=== PATIENT | male | born 1955 | race Caucasian/White ===

== ENCOUNTER → 2017-03-17 | Outpatient (CLI) | payer SELFPAY ==
[~2017-03-17] MED LIST: JANU50TA5 PO
--- NOTE | 2017-03-18 10:14 | RADRPT ---
EXAM DATE/TIME: 03/17/2017 15:29 CONSULTATION: Patient is kindly referred for evaluation of possible biopsy and thermal ablation of growing hepatic lesions in segments 7 and 4. Patient has a history of EtOH cirrhosis. Surveillance ultrasound imaging on June 2016 demonstrate d an enlarged caudate lobe concerning for mass at that time. This led to MRI examination in July 2016 which demonstrated 3 separate moderately suspicious small regions of enhancement in segments 7 a nd 4. Followup imaging in February of this year demonstrated very subtle interval enlargement of lesions in segments 7 and one of the lesions in segment 4. These lesions demonstrate early arterial enhancem ent with washout, therefore likely LI-RADS 5. Largest measures 2.3 cm near the dome in segment 7 with the segment 4 mass measuring 1.9 cm. Patient has normal AFP levels and normal hepatic function based on provided laboratory data from 01/14/2017. These lesions are very difficult to visualize on nonenhanced MRI images and suspect will be the same on CT exam. Additionally, both masses are small in size. Extremely cephalad location of the segment 7 mass in the posterior dome region precludes biopsy. The segment 4 mass may be amenable to biopsy if visualized with ultrasound and depending on appearance on CT. If ablation is planned, both lesions wi ll require marking with radiopaque beads or Ethiodol to allow for targeting. Will schedule patient for formal consultation. Ryan Ryan MD on March 18, 2017 at 9:25 Board Certified Radiologist. This report was verified electronically.
== END ==
LOC: HRAD 15:24
PROVIDERS: ATTEND Internal Medicine Gastroenterology
DX: K76.89 Other specified diseases of liver (principal)

== ENCOUNTER 2017-04-06 14:24 | Day surgery (SDC) | payer MEDICARE ==
[2017-04-06 14:35] VITALS: BP 133/63; PULSE 93; RESP 20; TEMP 97.4; O2SAT 98
[2017-04-06] MEDS ORDERED: METO50TA11 PO (16:14)
[2017-04-06] MEDS ORDERED: ALLO300T2 PO (16:14)
[2017-04-06] MEDS ORDERED: ATOR20TA15 PO (16:14)
[2017-04-06] MEDS ORDERED: LOSA50TA2 PO (16:14)
[2017-04-06] MEDS ORDERED: NEUR300C PO (16:14)
[2017-04-06] MEDS ORDERED: METF850T PO (16:14)
[2017-04-06] MEDS ORDERED: ISOS30TA15 (16:14)
[2017-04-06] MEDS ORDERED: ASPI325T PO (16:14)
[2017-04-06] MEDS ORDERED: OMEP10CA PO (16:14)
[2017-04-06] MEDS ORDERED: NITR1SUB3 SL (16:14)
[2017-04-06] MEDS ORDERED: AMLO5TAB2 PO (16:14)
[2017-04-06] MEDS ORDERED: LANTINJ SQ (16:14)
--- NOTE | 2017-04-07 11:21 | RADRPT ---
EXAM DATE/TIME: 04/06/2017 14:30 [facility] COMPARISON : INDICATIONS : Consult for hepatocellular carcinoma OBJECTIVE: Temperature: 97.4 Heart Rate: 93 Blood Pressure: 133/63 Respiratory: 18 Oximetry: 98 PNEUMONIA VACCINE: NO HISTORY OF PRESENT ILLNESS: Mr. Whittington is a very pleasant 61-year-old white male with a history of alcoholic cirrhosis with tiny r eferred for evaluation of possible biopsy and ablation of liver masses. Patient has no complaints and denies fevers, chills, abdominal pain, unintentional weight loss. Surveillance MRI imaging in [facility] of last year demonstrated 3 suspicious areas of enhancement with subsequent MRI in February demonstrat ing 2 of these lesions have increased in size. These include a 2.3 cm lesion in segment 7 near the do me and a 1.9 cm lesion in segment 8. The third lesion in segment 4 appears to be stable. PAST MEDICAL HISTORY : 1. Hypercholesterolemia. 2. Cardiovascular disease. 3. Diabetes mellitus 2. 4. Carcinoma, hepatocellular. PAST SURGICAL HISTORY : 1. CABG 2. right groin hernia repair 3. cataract SOCIAL HISTORY : ALLERGIES: 1. Penicillin 2. Iodinated contrast MEDICATIONS: 1. allopurinol 300 mg q.d. 2. Neurontin (Gabapentin) 600 mg q.d. 3. Lopressor (Metoprolol) 50 mg q.d. 4. Fomwace760 mg q.d. 5. Glumetza (Metformin)850 mg t.i.d. 6. amlopine besylate 5 mg q.d. 7. Prilosec (Omeprazole)5 mg q.d. 8. losartin 50/12.5 hctz mg q.d. 9. lantus units q.d. 10. atorvastatin 20 mg q.d. PHYSICAL EXAMINATION: General: No acute distress Abdomen: Soft nontender nondistended. IMAGING STUDIES: MRI examination dated 03/09/2017 and 07/23/2016 are reviewed. These demonstrate slight appearing liver with 2 enlarging enhancing nodules measuring 2.3 cm in segment 7 near the dome and 1.9 cm in segment 8 of the liver. Both nodules demonstrate peripheral enhancement with early washout. These are consist ent with LI-RADS 4. No evidence of portal vein invasion. Spleen is enlarged consistent with some deg ree of portal hypertension. ASSESSMENT: 61-year-old male with history of alcoholic cirrhosis and new enlarging LI-RADS 4 nodules in segments 7 and 8 of the liver. The segment 7 mass is abutting the diaphragm in the extreme dome of the liver a nd not a candidate for biopsy. The segment 8 mass is best visualized during the opacified phase on MR scan and therefore likely Ste[facility] with noncontrast CT. This makes biopsy of this mass extremely chal lenging but biopsy is feasible. Therefore, recommend biopsy of the segment 8 mass to confirm diagnosi s. Long discussion regarding potential treatment options including transplantation and liver resectio n although suspect liver resection would be challenging due to portal hypertension. Thermal ablation is a reasonable second option although obtaining margins in the segment 7 mass would be challenging d ue to position in the extreme dome of the liver. Thermal ablation would likely require concomitant ta gging chemoembolization for better targeting. PLAN: The plan for biopsy of mass in segment 8 of the liver. TIME SPENT: 20 minutes. Ryan Ryan MD on April 07, 2017 at 10:56 Board Certified Radiologist. This report was verified electronically.
== END 2017-04-06 15:50 | disposition home or self-care (01) ==
LOC: HROP 14:24 → HRIP 14:27 → HROP 15:50
PROVIDERS: ATTEND Internal Medicine Gastroenterology
DX: C22.0 Liver cell carcinoma (principal); R16.0 Hepatomegaly, not elsewhere classified; R93.5 Abnormal findings on diagnostic imaging of other abdominal regions, including retroperitoneum; K70.30 Alcoholic cirrhosis of liver without ascites; I25.10 Atherosclerotic heart disease of native coronary artery without angina pectoris; E11.9 Type 2 diabetes mellitus without complications; Z95.1 Presence of aortocoronary bypass graft; Z79.84 Long term (current) use of oral hypoglycemic drugs; Z79.4 Long term (current) use of insulin; Z79.899 Other long term (current) drug therapy
CPT/HCPCS: 99211; 99213; G0463

== ENCOUNTER 2017-05-11 07:40 | Day surgery (SDC) | payer MEDICARE ==
[~2017-05-11] VITALS: Ht 175.3 cm; Wt 85.5 kg
[2017-05-11] VITALS (7 sets, daily range): BP systolic 117–153; BP diastolic 63–86; PULSE 84–90; RESP 17–20; TEMP 97.7–98.1; O2SAT 90–96
[~2017-05-11 07:40] MED LIST changes: +ALLO300T2 PO; +AMLO5TAB2 PO; +ASPI325T PO; +ATOR20TA15 PO; +ISOS30TA15; -JANU50TA5 PO; +LANTINJ SQ; +LOSA50TA2 PO; +METF850T PO; +METO50TA11 PO; +NEUR300C PO; +NITR1SUB3 SL; +OMEP10CA PO
[2017-05-11] MEDS ORDERED: SODIUM CHLOR 0.9% 1000 ML INJ 1,000 ML IV SCH (08:15)
[2017-05-11] MEDS ORDERED: LIDOCAINE HCL 1% 20 ML VIAL ONE (08:42)
[2017-05-11 09:00] LABS: AUTOMATED NEUTROPHIL # 3.4 TH/MM3 (1.8-7.7); BASOPHIL % 0.8 % (0.0-2.0); EOSINOPHIL # 0.2 TH/MM3 (0-0.4); EOSINOPHIL % 2.7 % (0.0-4.0); HEMATOCRIT 37.2 % (39.0-51.0); HEMO FLAGS DIFF FINAL; LYMPH % 25.2 % (9.0-44.0); LYMPHOCYTE # 1.4 TH/MM3 (1.0-4.8); MEAN CELL VOLUME 80.7 FL (80.0-100.0); MEAN CORPUSCULAR HEMOGLOBIN 26.6 PG (27.0-34.0); MONO % 9.2 % (0.0-8.0); NEUT % 62.1 % (16.0-70.0); PLATELET COUNT 111 TH/MM3 (150-450); RED BLOOD COUNT 4.61 MIL/MM3 (4.50-5.90); RED CELL DISTRIBUTION WIDTH 17.8 % (11.6-17.2); WHITE BLOOD COUNT 5.5 TH/MM3 (4.0-11.0)
[2017-05-11 09:14] LABS: APTT (PATIENT) 26.4 SEC (24.3-30.1); INTERNATIONAL NORMALIZED RATIO 1.1 RATIO; PROTHROMBIN TIME - PATIENT 12.5 SEC (9.8-11.6)
[2017-05-11] MEDS ORDERED: MIDAZOLAM HCL 2 MG/2 ML VIAL ONE ×2 (09:44→10:21)
--- NOTE | 2017-05-11 11:47 | RADRPT ---
EXAM DATE/TIME: 05/11/2017 10:12 [facility] COMPARISON: No previous studies available for comparison. INDICATIONS : Liver mass. MEDICAL HISTORY : Hypercholesterolemia. Hypertension. Gastroesophageal reflux disease. Diabetes. SURGICAL HISTORY : CABG. Eye surgery. Hernia repair. Back surgery. ENCOUNTER: Subsequent ACUITY: 1 day PAIN SCORE: Nonresponsive. LOCATION: Right upper quadrant AREA EVALUATED: Liver FINDINGS: The patient presented for biopsy of a 1.8 cm mass in segment 8 of the right lobe of the liver. This l esion was not visible by CT imaging. While the patient was on the CT table the liver was scanned with ultrasound in attempt to localize a site for biopsy. There was visualization of an area in the centr al aspect of the right lobe of the liver measuring approximately 1.5 X1 0.7 cm hardware this was not reproducible enough to allow attempt at biopsy. CONCLUSION: 1. Small hyperechoic lesion in the right lobe of the liver. This lesion was not reliably enough repro duce to allow biopsy. No biopsy was performed. Ahmet Boles MD on May 11, 2017 at 11:43 Board Certified Radiologist. This report was verified electronically.
--- NOTE | 2017-05-11 11:50 | RADRPT ---
EXAM DATE/TIME: 05/11/2017 09:48 [facility] COMPARISON: The patient's outside MRI scan was evaluated. INDICATIONS : <<Liver masses> TECHNIQUE: Using automated exposure control and adjustment of the mA and/or kV according to patient size, radiat ion dose was kept as low as reasonably achievable to obtain optimal diagnostic quality images. DICO M format image data is available electronically for review and comparison. FINDINGS: Clinical history: The patient is a 61-year-old with multiple lesions identified within the liver by MRI imaging. The mo st concerning lesion was identified within segment 8. The patient presents for attempt at CT-guided b iopsy of this lesion. Noncontrast imaging through the liver was performed. The lesion in segment 8 is not visible on noncon trast CT imaging. Ultrasound was performed while the patient was in the scanner. Lesion was not adequ ately visualized by ultrasound to attempt biopsy either. The patient has a known iodine allergy. No c ontrast could be administered. As such, no biopsy was performed. Plan: The patient was returned to the holding area. No procedure was performed. The risks, benefits and pot ential complications of lipiodol administration for localization of the lesion were discussed with th e patient. The patient will be scheduled for hepatic angiography with placement of lipiodol and repea t attempt at biopsy once this as localize the lesion. CONCLUSION: 1. No biopsy performed. The lesion is not visible by noncontrast CT imaging. It is not adequately vis ualized on ultrasound. 2. We will work on scheduling the patient have lipiodol administration for localization of the lesion to perform biopsy. Ahmet Boles MD on May 11, 2017 at 11:45 Board Certified Radiologist. This report was verified electronically.
--- NOTE | 2017-05-11 13:11 | PD.RAD ---
Post Procedure Progress Note Pre Procedure Diagnosis: (1) Liver mass, right lobe Post Procedure Diagnosis: (1) Liver mass, right lobe Procedure Date: May 11, 2017 Supervising Radiologist: Ahmet Boles Plan of Activity Patient to Unit: [facility] Patient Condition: Good Additional Comments: PT. Evaluated with CT and ultrasound. The liver mass could not be adequately visualized for biopsy. No procedure preformed. Full dictated report to follow See PACS Report for procedural detail/treatment Ahmet Boles MD May 11, 2017 13:11
== END 2017-05-11 13:25 | disposition home or self-care (01) ==
LOC: HRAD 07:40 → HRIP 07:41 → HRAD 13:25
PROVIDERS: ATTEND Internal Medicine Gastroenterology
DX: R16.0 Hepatomegaly, not elsewhere classified (principal); E78.00 Pure hypercholesterolemia, unspecified; I10 Essential (primary) hypertension; K21.9 Gastro-esophageal reflux disease without esophagitis; E11.9 Type 2 diabetes mellitus without complications; Z91.041 Radiographic dye allergy status; Z79.4 Long term (current) use of insulin
CPT/HCPCS: 76705; 85025; 85610; 85730; G0463; J2250; J3010; 99211

== ENCOUNTER 2017-05-18 06:47 | Day surgery (SDC) | payer MEDICARE ==
[~2017-05-18] VITALS: Ht 175.3 cm; Wt 83.6 kg
[2017-05-18] VITALS (10 sets, daily range): BP systolic 103–144; BP diastolic 58–84; PULSE 84–107; RESP 16–20; TEMP 97.5–98.4; O2SAT 92–100
[2017-05-18] MEDS ORDERED: IOHEXOL 350 MG/ML 100 ML BTL (for RAD DIAG) OTHER ONE (06:48)
[2017-05-18] MEDS: SODIUM CHLOR 0.9% 1000 ML INJ 1,000 ML IV SCH ×2 (07:21→10:15)
[2017-05-18 07:43] LABS: BICARBONATE 24.6 MEQ/L (21.0-32.0); POTASSIUM 4.5 MEQ/L (3.5-5.1)
[2017-05-18] MEDS ORDERED: MIDAZOLAM HCL 5 MG/5 ML VIAL ONE (09:20)
[2017-05-18] MEDS ORDERED: VERAPAMIL HCL 5 MG/2 ML VIAL ONE (09:32)
[2017-05-18] MEDS ORDERED: ETHIODIZED OIL (48% IODINE) 4800 MG/10 ML AMP ONE (09:33)
[2017-05-18] MEDS ORDERED: NITROGLYCERIN 2% OINT 1 GM PACKET ONE (10:49)
[2017-05-18] MEDS ORDERED: SODIUM CHLOR 0.9% 1000 ML INJ 1,000 ML IV SCH (11:37)
--- NOTE | 2017-05-18 11:39 | PD.RAD ---
Post Procedure Progress Note Pre Procedure Diagnosis: (1) Liver mass, right lobe Post Procedure Diagnosis: (1) Liver mass, right lobe Procedure Date: May 18, 2017 Supervising Radiologist: Ryan Ryan Proceduralist/Assist: Andrey Reynolds, RT(R), Jack Elizondo RT(R) Anesthesia: Conscious Sedation Plan of Activity Patient to Unit: [facility] Patient Condition: Good Additional Comments: No abnormal enhancement on angiography. Lipiodol embolization of RHA for targeting. See PACS Report for procedural detail/treatment Ryan Ryan MD May 18, 2017 11:39
[2017-05-18] MEDS ORDERED: oxyCODONE/ACETAMINOPHEN 5 MG/325 MG TAB PO PRN (11:45)
--- NOTE | 2017-05-18 13:53 | RADRPT ---
EXAM DATE/TIME: 05/18/2017 09:55 [facility] COMPARISON: No previous studies available for comparison. INDICATIONS : 61-year-old male with history of alcoholic cirrhosis with enlarging 2.3 cm lesion in segment 7 near t he dome and 1.9 cm lesion in segment 8. Attempted ultrasound and CT guided biopsy was deferred second winston to nonvisualization. Therefore, patient presents for hepatic artery lipiodol embolization for fur ther evaluation and for possible targeted biopsy. MEDICAL HISTORY : Cataracts HTN DM GERD Dyslipidemia PAD Heart failure SURGICAL HISTORY : CABG x2 Cataract R groin hernia repair Back sx L4-S1 ENCOUNTER: Initial ACUITY: 4-6 months PAIN SCORE: 0/10 LOCATION: N/A FLUORO TIME: 13.5 minutes IMAGE SERIES: 7 ACCESS SITE: Left Radial artery SEDATION TIME: 30 minutes CONTRAST: 1.) 44 cc Omnipaque (iohexol) 350 MEDICATION(S): 1.) 5 mg midazolam (Versed) IV 2.) 200 mcg fentanyl (Sublimaze) IV 3.) 4 mg Verapamil IV 4.) 400 mg Nitroglycerin IV 5.) 5 mg Lipiodol IART PROCEDURE : 1. Ultrasound-guided puncture of the radial artery. 2. Conscious sedation with continuous EKG and Oximetry monitoring. 3. Selective catheter placement in the common hepatic artery with selective angiography 4. Subselective catheter placement in the proper hepatic artery with subselective angiography 5. Subselective catheter placement in the main right hepatic artery with subselective angiography 6. Subselective catheter placement in the anterior right hepatic artery with subselective angiograph y 7. Subselective catheter placement in the posterior right hepatic artery with subselective angiograp hy 8. Lipiodol embolization of the anterior right hepatic artery 9. Lipiodol embolization of the posterior right hepatic artery The risks, benefits and alternatives to the procedure were explained and verbal and written consent w as obtained. The site was prepped in sterile fashion. Full sterile technique was used, including cap, mask, steri le gloves and gown and a large sterile sheet. Hand hygiene and 2% chlorhexidine and/or betadine/alco hol prep was utilized per protocol for cutaneous antisepsis. Sterile gel and sterile probe cover wer e utilized for ultrasound guidance. The skin and subcutaneous tissues were infiltrated with local an esthetic solution. A Barbeau test was performed prior to preparing the patient for the procedure which demonstrated adeq uate collateral circulation. With ultrasound and fluoroscopic guidance the prescribed radial was punc tured and a vascular sheath was placed. 5 Palestinian Valentine catheter was advanced into the celiac heydi ry and secured in the proximal common hepatic artery. Angiography was then performed. This demonstrat ed standard celiac anatomy with corkscrew hepatic branches consistent with cirrhosis. No definite abn ormal enhancement was demonstrated. Renegade high flow microcatheter and a fathom 16 microwire were t hen used to catheter was then advanced into the right hepatic artery and again angiography performed confirming the findings. Catheter was then repositioned into the anterior branch of the right hepatic artery and angiography performed. No definite abnormal enhancement was demonstrated. Catheter was th en repositioned into the posterior hepatic artery and angiography performed. Again no abnormal enhanc ement was demonstrated. Approximately 2 mL of lipiodol was then injected into the posterior segmental branch. Catheter was then repositioned into the anterior segmental branch and 3 cc of lipiodol was i njected into the anterior segmental branch. Catheter was then withdrawn. Followup angiography perform ed through the angiographic catheter demonstrates persistent forward flow in right hepatic artery bra nches. Wires and catheters were then removed. Hemostasis was achieved with a radial artery compression device. The patient tolerated the procedure well and there were no complications. Conscious sedation was performed with the prescribed dosages and duration as above in the presence of an independent trained radiology nurse to assist in the monitoring of the patient. EKG and oximetry remained stable throughout the procedure. CONCLUSION: 1. Standard celiac anatomy with evidence for a cirrhosis. 2. Subselective hepatic angiography does not demonstrate any abnormal enhancement or focal mass. 3. Technically successful lipiodol embolization of the posterior and anterior segmental branches of t he right hepatic artery for potential targeted for biopsy with CT. Plan: Will obtain an immediate post procedural CT exam to evaluate overall pattern of lipiodol deposi tion in the liver. If no focal disparate lipiodol accumulation is noted in the segments 7 and 8 glenroy s, patient will return in approximately [address] examination and possible targeted biops y. Ryan Ryan MD on May 18, 2017 at 13:38 Board Certified Radiologist. This report was verified electronically.
--- NOTE | 2017-05-18 15:37 | RADRPT ---
EXAM DATE/TIME: 05/18/2017 14:46 [facility] COMPARISON: No previous studies available for comparison. INDICATIONS : Liver mass, s/p lipiodol marking ORAL CONTRAST: No oral contrast ingested. RADIATION DOSE: 10.22 CTDIvol (mGy) MEDICAL HISTORY : Cardiovascular disease. Hypertension. Diabetes mellitus type 2. SURGICAL HISTORY : None. ENCOUNTER: Initial ACUITY: 1 day PAIN SCALE: 0/10 LOCATION: Right upper quadrant TECHNIQUE: Volumetric scanning of the abdomen was performed. Using automated exposure control and adjustment of the mA and/or kV according to patient size, radiation dose was kept as low as reasonably achievable to obtain optimal diagnostic quality images. DICOM format image data is available electronically for review and comparison. FINDINGS: LOWER LUNGS: The visualized lower lungs are clear. LIVER: Strike appearing liver. Dense material throughout the right lobe liver consistent with recent injecti on of intra-arterial lipiodol. There is no disproportionate uptake of lipiodol a suspected segment 7 and segment 8 lesions. There is some uptake in the region of the patient's stable segment 4 mass but again this is not significantly disproportionate. SPLEEN: Spleen is mildly enlarged measuring up to 13.8 cm. PANCREAS: Within normal limits. KIDNEYS: Normal in size and shape. There is no mass, stone, or hydronephrosis. ADRENAL GLANDS: Within normal limits. AORTA/RETROPERITONEAL: Moderate atherosclerotic calcifications without aneurysm. BOWEL/MESENTERY: Visualized portions of bowel are grossly unremarkable. MUSCULOSKELETAL: No abnormal focal lytic or blastic bony lesions. CONCLUSION: 1. Heterogeneous distribution of lipiodol throughout the right lobe of the liver without definite dis proportionate lipiodol uptake in suspected segment 7 and segment 8 lesions. There is uptake in a stab le segment 4 mass, but this is not significantly disproportionate. Plan: Followup CT examination in 2 weeks to reevaluate for lipiodol retention in suspected hepatic tumors. Ryan Ryan MD on May 18, 2017 at 15:29 Board Certified Radiologist. This report was verified electronically.
== END 2017-05-18 16:05 | disposition home or self-care (01) ==
LOC: HROP 06:47 → HRIP 06:49 → HROP 16:05
PROVIDERS: ATTEND Internal Medicine Gastroenterology
DX: K70.30 Alcoholic cirrhosis of liver without ascites (principal); I50.9 Heart failure, unspecified; I11.0 Hypertensive heart disease with heart failure; E11.9 Type 2 diabetes mellitus without complications; K21.9 Gastro-esophageal reflux disease without esophagitis; E78.5 Hyperlipidemia, unspecified; I25.10 Atherosclerotic heart disease of native coronary artery without angina pectoris; Z79.4 Long term (current) use of insulin; I73.9 Peripheral vascular disease, unspecified
CPT/HCPCS: 36247; 36248; 37243; 74150; 75726; 75774; 76937; 80048; 99152; 99153; C1769; C1887; C1894; J2250; J3010; J7030; Q9967

== ENCOUNTER 2017-06-02 13:59 | Day surgery (SDC) | payer MEDICARE ==
[2017-06-02 14:55] VITALS: BP 142/94; PULSE 83; RESP 20; TEMP 97.7; O2SAT 97
--- NOTE | 2017-06-02 15:49 | RADRPT ---
EXAM DATE/TIME: 06/02/2017 14:42 [facility] COMPARISON: CT ABDOMEN W/O CONTRAST, May 18, 2017, 14:46. INDICATIONS : Hepatic mass. ORAL CONTRAST: No oral contrast ingested. RADIATION DOSE: 11.61 CTDIvol (mGy) MEDICAL HISTORY : Gastroesophageal reflux disease. Cardiovascular disease Hypertension. SURGICAL HISTORY : Inguinal hernia repair. CABGLumbar surgery. ENCOUNTER: Initial ACUITY: 1 day PAIN SCALE: 0/10 LOCATION: Right upper quadrant TECHNIQUE: Volumetric scanning of the abdomen was performed. Using automated exposure control and adjustment of the mA and/or kV according to patient size, radiation dose was kept as low as reasonably achievable to obtain optimal diagnostic quality images. DICOM format image data is available electronically for review and comparison. FINDINGS: LOWER LUNGS: The visualized lower lungs are clear. LIVER: Cirrhotic appearing liver. No retained lipiodol is noted in the liver. Specifically, no residual upta ke in the suspected segment 4, 7 or 8 lesions. SPLEEN: Enlarged measuring up to 13.8 cm. PANCREAS: Within normal limits. KIDNEYS: Normal in size and shape. There is no mass, stone, or hydronephrosis. ADRENAL GLANDS: Within normal limits. AORTA/RETROPERITONEAL: Moderate atherosclerotic calcifications without aneurysm. BOWEL/MESENTERY: The stomach and visualized small and large bowel demonstrate no abnormality. MUSCULOSKELETAL: Within normal limits for patient age. CONCLUSION: 1. No significant focal lipiodol retention in the right lobe of the liver. Particularly, no evidence for uptake in suspected lesions in segment 4, 7 and 8. Ryan Ryan MD on June 02, 2017 at 14:51 Board Certified Radiologist. This report was verified electronically.
--- NOTE | 2017-06-02 16:12 | RADRPT ---
EXAM DATE/TIME: 06/02/2017 14:55 [facility] COMPARISON : INDICATIONS : F/U hepatic lipiodol embolization OBJECTIVE: Temperature: 97.7 Heart Rate: 83 Blood Pressure: 142/94 Respiratory: 20 Oximetry: 97 HISTORY OF PRESENT ILLNESS: Mr. Whittington is a very pleasant 61-year-old white male with a history of alcoholic cirrhosis kindly refe rred for evaluation of possible biopsy and ablation of liver masses diagnosed during surveillance MRI examination. Surveillance MRI imaging in July of last year demonstrated 3 suspicious areas of en hancement with subsequent MRI in February demonstrating 2 of these lesions have increased in size. These include a 2.3 cm lesion in segment 7 near the dome and a 1.9 cm lesion in segment 8. The third lesion in segment 4 appears to be stable. These lesions could not be identified with CT or ultrasound and therefore given their small size biop sy was originally deferred. Hepatic angiography was performed with lipiodol embolization of the right hepatic arteries. No abnormal enhancement was demonstrated during angiography and there was no focal uptake of lipiodol immediately following embolization. Patient now returns for [address] ex amination in evaluation. On repeat CT examination, there is no focal residual uptake. ASSESSMENT: 61-year-old male with EtOH cirrhosis and small potential masses in segments 4, 7 and 8 of the liver. These lesions are not visualized with CT or ultrasound for biopsy targeting. Hepatic angiography also does not demonstrate abnormal enhancement in these regions and there is no focal uptake of lipiodol both immediately and following 2 weeks post embolization. Therefore, these lesions cannot be confirme d nor sufficiently visualized for biopsy targeting. However, continued surveillance is recommended gi nate the high degree of suspicion. This can be performed at the normal six-month interval, approximate ly in August time frame. PLAN: Continued 6 month [facility] MRI surveillance imaging, August time frame. Please request Dr. Fregoso or Connor for interpretation of the images. TIME SPENT: 20 minutes Ryan Ryan MD on June 02, 2017 at 15:55 Board Certified Radiologist. This report was verified electronically.
== END 2017-06-02 15:52 | disposition home or self-care (01) ==
LOC: HRAD 13:59 → HRIP 14:00 → HRAD 15:52
PROVIDERS: ATTEND Family Medicine
DX: R16.0 Hepatomegaly, not elsewhere classified (principal); K70.30 Alcoholic cirrhosis of liver without ascites; I10 Essential (primary) hypertension
CPT/HCPCS: 74150